=== PATIENT | female | born 1940 ===

== ENCOUNTER 2017-11-19 17:33 | Emergency (ER) | payer MEDICARE ==
[~2017-11-19 17:33] MED LIST: Bacitracin Oint 1 GM U/D Packet TOP ONE; Diphtheria,Pertussis(Acell),Tetanus Vaccine 0.5 ML SDV IM ONE
--- NOTE | 2017-11-19 17:33 | EDM.PDOC ---
Scribed by Vannesa Patterson 11/19/17 [id number] for Jose Balderas MD ED HPI GENERAL MEDICAL PROBLEM - General Chief Complaint: Laceration Stated Complaint: [facility] Time Seen by Provider: 11/19/17 17:16 Source of Information: Reports: Patient, EMS, EMS Notes Reviewed, RN, RN Notes Reviewed History Limitations: Reports: No Limitations - History of Present Illness INITIAL COMMENTS - FREE TEXT/NARRATIVE: [facility] with a small laceration to the posterior scalp. Patient has advanced dementia and is not able to provide any history. Paramedics and longterm state that there was no loss of consciousness or any other injuries. Onset: Today Location: Reports: Head Quality: Reports: Ache Severity: Mild Improves with: Reports: None Worsens with: Reports: None Associated Symptoms: Reports: No Other Symptoms ED ROS GENERAL - Review of Systems Review Of Systems: Unable To Obtain (because of dementia) ED EXAM, HEAD INJURY - Physical Exam Exam: See Below Exam Limited By: Altered Mental Status General Appearance: Other (well appearing elderly female) Head: Normocephalic, Scalp Lacerations (1cm horizontal laceration to depth of subcutaneous tissue at the midline inferior occipital scalp. No active bleeding. No foriegn body. ) Eyes: Bilateral Eye: Normal Inspection Ears: Normal External Exam Nose: Normal Inspection Throat/Mouth: Normal Voice, No Airway Compromise Neck: Normal Inspection Respiratory: No Respiratory Distress Cardiovascular: Regular Rate, Rhythm Back Exam: Normal Inspection Extremities: Normal Inspection Neurologic: No Motor/Sensory Deficits, Other (baseline due to dementia.) Skin: Normal Color, Warm/Dry ED LACERATION/WOUND & BRIGITTE PROC - Laceration/Wound Repair Midline Occipital Head Lac/wound length in cm: 1.5 Appearance: Subcutaneous, Linear, Clean Distal NVT: Neuro & Vascular Intact Anesthetic Type: Other (none) Skin Prep: Providone-Iodine (Betadine) Exploration/Debridement/Repair: Wound Explored, In a Bloodless Field, Explored to Base, Minimal Debridement, Minimally Undermined Closed with: [place] # of Sutures: 1 (staple) Suture Type: Simple Sterile Dressing Applied: None Tetanus Status Addressed: Yes Complications: No Course - Orders/Labs/Meds Orders: Active Orders 24 hr Category Date Time Status Vaccines to be Administered [RC] PER UNIT ROUTINE Care 03/04/18 17:27 Active Meds: Medications Discontinued Medications Generic Name Dose Route Start Last Admin Trade Name Jaya PRN Reason Stop Dose Admin Bacitracin 1 dose 11/19/17 17:27 Bacitracin Oint 1 Gm TOP 11/19/17 17:28 ONETIME ONE Diphtheria/Tetanus/Acell Pertussis 0.5 ml 11/19/17 17:27 Adacel IM 11/19/17 17:28 .ONCE ONE Departure - Departure Time of Disposition: 17:32 Disposition: Home, Self-Care 01 Condition: Good Clinical Impression: Occipital scalp laceration Qualifiers: Encounter type: initial encounter Qualified Code(s): S01.01XA - Laceration without foreign body of scalp, initial encounter - Discharge Information Instructions: Stitches, [place], or Adhesive Wound Closure, [id number] Forms: ED Department Discharge Additional Instructions: Follow up with your doctor in 7 to 10 days for staple removal. - My Orders Last 24 Hours: My Active Orders 11/19/17 17:27 Vaccines to be Administered [RC] PER UNIT ROUTINE - Assessment/Plan Last 24 Hours: My Active Orders 11/19/17 17:27 Vaccines to be Administered [RC] PER UNIT ROUTINE I have read and agree with the documentation that has been completed regarding this visit. By signing this record, I attest that the documentation was completed in my physical presence and is an accurate record of the encounter.
== END 2017-11-19 18:00 | disposition home or self-care (01) ==
LOC: DL.ED 17:33
DX: S01.01XA Laceration without foreign body of scalp, initial encounter (principal); Z23 Encounter for immunization; X58.XXXA Exposure to other specified factors, initial encounter
CPT/HCPCS: 12001; 90715; 99282; 99284